=== PATIENT | male | born 1955 | race Caucasian/White ===

== ENCOUNTER → 2022-04-05 | Outpatient (CLI) | payer MEDICARE ==
[2022-04-05] VITALS (12 sets, daily range): BP systolic 114–153; BP diastolic 76–95; PULSE 51–63; TEMP 97.6
[~2022-04-05] VITALS: Ht 182.9 cm; Wt 110.6 kg
[~2022-04-05] MED LIST: ASPIRIN E.C. 8181 MG PO; COZAAR100 MG PO; GLUCOSAMINE 1000 PO; HCTZ12.5TAB PO; LIPITOR20 MG PO
--- NOTE | 2022-04-05 10:51 | NUR ---
Pt to ct per ambulation. Pt placed on ct table in prone position. Monitors applied and O2 on at 2l/nc
--- NOTE | 2022-04-05 11:15 | NUR ---
Specimen obtained by Dr Shetty. Octavio liquid removed from cyst. No tissue found. Specimen labeled and sent to lab for cytology.
== END ==
LOC: COL.RAD 03-27 12:30
DX: N28.1 Cyst of kidney, acquired (principal)
CPT/HCPCS: J2250; J3010